=== PATIENT | female | born 1970 | race Caucasian/White ===

== ENCOUNTER 2024-08-20 19:27 | Emergency (ER) | payer OTHER, SELFPAY ==
[2024-08-20 20:05] VITALS: BP 145/78; PULSE 86; RESP 18; TEMP 36.7; O2SAT 96; BMI 41.7
[2024-08-20 21:10] LABS: Basophils # 0.1 10^3/uL (0.0-0.1); Basophils % 0.6 %; Eosinophils # 0.2 10^3/uL (0.0-0.8); Hematocrit 45.3 % (36-47); Lymphocytes % 25.8 %; Mean Corpuscular HGB Conc 33.1 g/dL (30-55); Mean Corpuscular Volume 96.6 fl (85-98); Monocytes # 0.7 10^3/uL (0.2-0.9); Monocytes % 6.1 %; Neutrophils # 7.62 10^3/uL (1.8-7.7); Neutrophils % 65.1 %; Nucleated Red Blood Cells % 0 %; Platelet Count 330 10^3/cmm (157-399); Red Blood Count 4.69 10^6/uL (3.85-5.65); Red Cell Distribution Width 12.3 % (12.1-15.1); White Blood Count 11.72 10^3/uL (3.29-11.43)
[2024-08-20 21:26] LABS: Alanine Aminotransferase 41 U/L (0-33); Albumin Level 3.9 g/dL (3.5-5.2); Alkaline Phosphatase 83 U/L (35-105); Anion Gap 16.9 (5-19); Aspartate Amino Transferase 31 U/L (0-32); Blood Urea Nitrogen 23 mg/dL (6-20); Carbon Dioxide 24 mmol/L (22-29); Chloride 100 mmol/L (98-107); Creatinine Clr Calc Pharmacy 75.7827; Globulin 3.3 g/dL (1.3-4.6); Glomerular Filtration Rate 64.8 mL/min (90-130); Glucose 209 mg/dL (65-115); Lipase 80 U/L (13-60); Osmolality Calculated 294 mOsm/kg (285-295); Potassium 3.9 mmol/L (3.5-5.1); Sodium 137 mmol/L (136-145); Total Bilirubin 0.2 mg/dL (0.15-1.2); Total Protein 7.2 g/dL (6.6-8.7)
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
[2024-08-20 21:51] VITALS: RESP 18
[2024-08-20] MEDS: morphine 4 mg/mL SDV 1 mL IVP (21:51)
[2024-08-20 21:56] VITALS: BP 120/73; PULSE 81; RESP 16; O2SAT 90
[2024-08-20] MEDS: iohexol 350 mg/mL 500 mL Btl (per mL) IV (22:11)
[2024-08-20 22:35] VITALS: BP 127/69; PULSE 80; O2SAT 91
[2024-08-20 23:26] VITALS: BP 155/85; PULSE 74; O2SAT 93
== END 2024-08-20 23:27 | disposition home or self-care (01) ==
PROVIDERS: Emergency Medicine; Emergency Provider Physician Assistant
DX: S09.90XA Unspecified injury of head, initial encounter (principal); S39.012A Strain of muscle, fascia and tendon of lower back, initial encounter; S20.212A Contusion of left front wall of thorax, initial encounter; V89.2XXA Person injured in unspecified motor-vehicle accident, traffic, initial encounter
CPT/HCPCS: 36415; 70450; 71260; 73030; 74177; 80053; 83690; 85025; 96374; 99285; J2270